=== PATIENT | male | born 1960 | race Caucasian/White ===

== ENCOUNTER → 2017-11-02 | Outpatient (CLI) | payer OTHER ==
[~2017-11-02] MED LIST: DOCU-416 PO; FAM20 PO; FAMO20TA9 PO; HYDR-4309 PO; HYDR2AMP PO; IBUP600T22 PO; LOR5/325 PO; LOSA-54 PO; MON10 PO; MULT-1372 PO; ONDA4VIA30 PO; OXYB10TA21 PO; PHEN200T32 PO; TAMS0.4C25 PO; TRAM-420 PO
--- NOTE | 2017-11-02 14:58 | RADIOLOGY IMAGING REPORT ---
FACILITY: [facility] PATIENT NAME: Lauren Mccabe : 1960 MR: [id number] V: [id number] EXAM DATE: ORDERING PHYSICIAN: ELIU GRANGER TECHNOLOGIST: Location: [facility] [place] Patient: Lauren Mccabe : 1960 Visit/Account:[id number] Date of Sevice: 11/02/2017 KUB SINGLE VIEW ABDOMEN History: History of kidney stones. Comparison study: CT scan November 10, 2016 abdomen and pelvis. Findings: The bowel gas pattern is unremarkable. Previously noted subtle foci of calcification in the kidneys bilaterally on the previous CT scan are not noted on this plain film. Enlargement of the right renal shadow is related to the patient's know n large right renal cyst. There are findings of osteoarthrosis involving hips bilaterally. The sacroiliac joints are unremarka ble. IMPRESSION: 1. Unremarkable bowel gas pattern. 2. Previously noted nephrolithiasis cannot be seen on this examination. 3. Enlargement of the right renal shadow related to the patient's known large right renal cyst. 4. Osteoarthrosis of the hips bilaterally. Report Dictated By: Zackery Stark MD at 11/02/2017 2:52 PM Report E-Signed By: Zackery Stark MD at 11/02/2017 2:54 PM WSN:[email or web address]
--- NOTE | 2017-11-02 15:01 | RADIOLOGY IMAGING REPORT ---
FACILITY: [facility] - [place] PATIENT NAME: Lauren Mccabe : 1960 MR: [id number] V: [id number] EXAM DATE: ORDERING PHYSICIAN: ELIU GRANGER TECHNOLOGIST: [place] [facility] [place] Mccabe : 1960 Visit/Account:[id number] Date of Sevice: 11/02/2017 KIDNEYS Indication: Renal cyst. Nephrolithiasis. Procedure: There has been satisfactory grayscale ultrasonic evaluation of the kidneys and bladder. Comparison: CT scan November 10, 2016 abdomen and pelvis. Findings: Right side: The right kidney measures 9.7 cm x 5 cm x 5.9 cm in its sagittal, transverse and AP dimensions. The r ight kidney is displaced due to a subcapsular cyst measuring 12.7 x 8.6 x 11.4 cm laterally. Smaller cyst projects medially from the superior pole and it measures 2.5 cm in size. Previously noted neph rolithiasis is not appreciated on this exam. Left side: The left kidney measures 11 cm x 6 cm x 6 cm in its sagittal, transverse and AP dimensions. In the l eft kidney there is a 3.7 x 3.0 cm cyst. There is no mass. Previously noted nephrolithiasis cannot be appreciated on this exam. Bladder: The bladder is unremarkable. There is no significant post void residual. IMPRESSION: 1. In this patient with known subtle nephrolithiasis bilaterally the renal calculi are not appreciat ed on ultrasound. 2. The most prominent finding is a large 12.7 x 8.6 x 11.4 cm cyst that projects laterally from the superior aspect of the right kidney. A smaller right renal cyst measures 2.5 x 2.2 cm in size. 3. In the left kidney there is a small 3.7 x 3.0 cm cyst. Previously noted small calculi in the lef t kidney are not seen. There is no hydronephrosis. Report Dictated By: Zackery Stark MD at 11/02/2017 2:55 PM Report E-Signed By: Zackery Stark MD at 11/02/2017 2:57 PM WSN:[email or web address]
== END ==
LOC: US 12:19
PROVIDERS: ATTEND Urology
DX: N28.1 Cyst of kidney, acquired (principal); M16.0 Bilateral primary osteoarthritis of hip; N20.0 Calculus of kidney
CPT/HCPCS: 74018; 76705